=== PATIENT | female | born 1985 | race Caucasian/White ===

== ENCOUNTER → 2017-02-15 | Outpatient (CLI) | payer OTHER ==
[2017-02-15 19:19] LABS: THYROID STIMULATING HORMONE 1.43 uIU/mL (0.47-4.68)
== END ==
LOC: OD 17:01
PROVIDERS: ATTEND Student in an Organized Health Care Education/Training Program
DX: Z13.21 Encounter for screening for nutritional disorder (principal); Z13.29 Encounter for screening for other suspected endocrine disorder
CPT/HCPCS: 36415; 82306; 84439; 84443; 84480

== ENCOUNTER 2017-04-10 09:53 | Outpatient (CLI) | payer OTHER | END 2017-04-10 11:04 | disposition home or self-care (01) | LOC: LC 09:53 | PROVIDERS: ATTEND Student in an Organized Health Care Education/Training Program | PROC: 4A1HXCZ Monitoring of Products of Conception, Cardiac Rate, External Approach (ICD-10-PCS; principal; 2017-04-10) | DX: O48.0 Post-term pregnancy (principal); Z3A.40 40 weeks gestation of pregnancy | CPT/HCPCS: 59025 ==

== ENCOUNTER 2017-04-13 11:36 | Outpatient (CLI) | payer OTHER ==
--- NOTE | 2017-04-13 12:16 | Non Stress Test Report ---
Non Stress Test Datetime Report Generated by CPN: 04/13/2017 12:16 DEMOGRAPHIC EGA NST: 40.3 EGA NST: 40.0 INDICATION Indication for Study: Other Indication for Study: Ordered by Provider Indication for Study (NST) Other: Non-reactive NST in office Indication for Study (NST) Other: POST DATES MONITORING Monitor Explained: Monitor Explained; Test Explained; Patient Verbalized Understanding Monitor Explained: Monitor Explained; Test Explained; Patient Verbalized Understanding Time on Monitor: 04/13/2017 11:56 Time on Monitor: 04/10/2017 10:21 Time off Monitor: 04/13/2017 12:16 Time off Monitor: 04/10/2017 10:56 NST Duration: 20 NST Duration: 35 NST INTERVENTIONS NST Interventions: PO Hydration; Reposition Patient NST Interventions: PO Hydration; Reposition Patient Physician Notified NST: Dr. Baez Physician Notified NST: DR BAEZ REVIEWED STRIP BABY A: [id number] BABY A Movement : Present Movement : Present (Annotations: Data stored by CPN on behalf of user) Contraction Frequency : Irr Contraction Frequency : OCC FHR Baseline : 135 FHR Baseline : 135 Accelerations : 15X15 Accelerations : 15X15 Decelerations : None Decelerations : None Variability : Moderate 6-25bpm Variability : Moderate 6-25bpm NST Review: Meets Criteria for Reactive NST NST Review: Meets Criteria for Reactive NST NST Review and Verified By : Javon Velasco [facility] NST Review and Verified By : Hilda Canales NST Results: Reactive NST Results: Reactive NST REPORT Report Trigger: Send Report
== END 2017-04-13 12:23 | disposition home or self-care (01) ==
LOC: LC 11:36
PROVIDERS: ATTEND Student in an Organized Health Care Education/Training Program
PROC: 4A1HXCZ Monitoring of Products of Conception, Cardiac Rate, External Approach (ICD-10-PCS; principal; 2017-04-13)
DX: O48.0 Post-term pregnancy (principal); Z3A.40 40 weeks gestation of pregnancy
CPT/HCPCS: 59025

== ENCOUNTER 2017-04-16 19:05 | Inpatient (IN) | payer OTHER ==
[2017-04-16 20:56] LABS: ABSOLUTE LYMPHOCYTES (AUTO) 2.4 10^3/uL (0.5-4.7); ABSOLUTE NEUT (AUTO) 12.5 10^3/uL (1.7-8.2); BASOPHILS % (AUTO) 0.1 % (0-2); EOSINOPHILS % (AUTO) 0.3 % (0-6); HEMATOCRIT 39.1 % (36.0-47.0); HEMOGLOBIN 12.9 g/dL (12.0-15.5); HGB HCT DIFFERENCE -0.4; LYMPHOCYTES % (AUTO) 15.1 % (13-45); MEAN CORPUSCULAR HEMOGLOBIN 30.6 pg (27.0-33.4); MEAN CORPUSCULAR VOLUME 93 fl (80-97); MONOCYTES % (AUTO) 6.5 % (3-13); RED BLOOD COUNT 4.21 10^6/uL (3.72-5.28); RED CELL DISTRIBUTION WIDTH 13.2 % (11.5-14.0)
[2017-04-16 21:10] LABS: APPEARANCE,URINE CLOUDY; BILIRUBIN,URINE NEGATIVE (NEGATIVE); GLUCOSE, URINE NEGATIVE (NEGATIVE); KETONES,URINE NEGATIVE (NEGATIVE); LEUKOCYTE ESTERASE,URINE LARGE (NEGATIVE); NITRITE,URINE NEGATIVE (NEGATIVE); PROTEIN,URINE NEGATIVE (NEGATIVE); URINE SPECIFIC GRAVITY 1.008; UROBILINOGEN,URINE NEGATIVE mg/dL (<2.0)
[2017-04-16] MEDS ORDERED: RINGERS SOLUTION,LACTATED 300 ML IV ONE (21:16)
[2017-04-16] MEDS ORDERED: DINOPROSTONE 10 MG VAGINAL INSERT.SR PV PRN (21:16)
[2017-04-16] MEDS ORDERED: RINGERS SOLUTION,LACTATED 1,000 ML IV PRN (21:16)
[2017-04-16] MEDS ORDERED: OXYTOCIN/NORMAL SALINE 1,000 ML IV PRN (21:16)
[2017-04-16 21:25] LABS: URINE BARBITURATES SCREEN NEGATIVE; URINE METHADONE SCREEN NEGATIVE; URINE OPIATES LOW NEGATIVE; URINE PHENCYCLIDINE SCREEN NEGATIVE
[2017-04-16] MEDS ORDERED: DINOPROSTONE 10 MG VAGINAL INSERT.SR ONE (21:34)
[2017-04-16] MEDS ORDERED: ZOLPIDEM TARTRATE 5 MG TABLET ONE (23:12)
[2017-04-16] MEDS ORDERED: ZOLPIDEM TARTRATE 5 MG TABLET PO ONE (23:12)
[2017-04-17] MEDS ORDERED: PENICILLIN G-K 5 MILLION UNIT VIAL IV ONE (07:30)
[2017-04-17] MEDS ORDERED: PENICILLIN G POTASSIUM 5,000,000 UNIT in DEXTROSE 5%-WATER 100 ML IV ONE (08:00)
[2017-04-17] MEDS ORDERED: OXYTOCIN/NORMAL SALINE 0 UNIT/0 ML RTUINJ ONE ×2 (10:34→19:20)
[2017-04-17] MEDS ORDERED: PENICILLIN G POTASSIUM 2,500,000 UNIT in DEXTROSE 5%-WATER 50 ML IV SCH (12:00)
--- NOTE | 2017-04-17 13:04 | L&D Progress Notes ---
PROGRESS NOTES Datetime Report Generated by CPN: 04/17/2017 13:03 PROGRESS NOTE Procedures: Artificial ROM; Scalp Electrode Plan: Continue Present Management; Induction Informed Consent Obtained: Section Delivery; Induction of Labor; Risks, Benefits and Alternatives Discussed Vital Signs : Reviewed Comment: s/p cervidil removal pt sitting up noted intermittent late and variable decelerations relieved with position change cervix 3/70/-2 warm to touch temp 98.3 AROM heavy meconium EFW 8 lbs GBS positive- prophylaxis initiated pitocin 4 milliunits/ min contractions 3-4 min FSE placed poc reviewed with pt and spouse VAGINAL EXAM Dilatation: 3 Dilatation: 1 Effacement: 70 Effacement: 50 Station: -2 Station: -2 MEMBRANES Membranes: Ruptured Amniotic Fluid Color: Meconium, Heavy FETUS A FHR - Baseline: 140 Monitoring: External US Variability: Moderate 6-25bpm Decelerations: Late; Variable FHR Category: Category I : 41.0 SIGNATURE SIGNATURE: [id number] SIGNATURE: [id number] Assignment: Flavio Peterson MD Signature: with User ID: [email or web address] : with User ID: [email or web address]
[2017-04-17] MEDS ORDERED: PENICILLIN G-K 5 MILLION UNIT VIAL ONE ×3 (13:05→21:09)
[2017-04-17] MEDS ORDERED: EPHEDRINE SULFATE INJ 50 MG/1 ML AMPULE ONE (13:54)
[2017-04-17] MEDS ORDERED: BUPIVACAINE HCL 0.25 % INJ/PF (2.5 MG/1 ML) 30 ML VIAL ONE (13:55)
[2017-04-17] MEDS ORDERED: FENTANYL/BUPIVACAINE/NS/PF 200 MCG/100 ML RTUINJ EPI ONE (13:55)
[2017-04-17] MEDS ORDERED: LIDOCAINE 2%/EPINEPHRINE INJ 20 ML VIAL ONE (14:20)
[2017-04-17] MEDS ORDERED: SODIUM BICARBONATE 8.4% INJ 50 MEQ/50 ML DISP.SYRIN ONE (14:20)
[2017-04-17] MEDS ORDERED: PHENYLEPHRINE HCL INJ/PF 10 MG/1 ML SDV ONE (14:21)
[2017-04-17] MEDS ORDERED: FENTANYL CITRATE INJ/PF 100 MCG/2 ML AMPUL ONE (14:21)
[2017-04-17] MEDS: PENICILLIN G-K 5 MILLION UNIT VIAL IV SCH ×2 (19:10→21:14)
[2017-04-17] MEDS ORDERED: LIDOCAINE 1% INJ-PF (10 MG/ML) 30 ML SDV ONE (19:20)
[2017-04-17] MEDS ORDERED: MISOPROSTOL 0.2 MG TABLET ONE (19:20)
[2017-04-17] MEDS ORDERED: PROMETHAZINE HCL 25 MG TABLET PO PRN (22:10)
[2017-04-17] MEDS ORDERED: PROMETHAZINE HCL 25 MG SUPP.RECT PR PRN (22:10)
[2017-04-17] MEDS ORDERED: DIBUCAINE 1% OINTMENT 28 GM TP PRN (22:10)
[2017-04-17] MEDS ORDERED: DIPHENHYDRAMINE HCL 25 MG CAPSULE PO PRN (22:10)
[2017-04-17] MEDS ORDERED: NA PHOS,M-B/NA PHOS,DI-BA (ADULT) 133 ML ENEMA PR PRN (22:10)
[2017-04-17] MEDS ORDERED: OXYTOCIN/NORMAL SALINE 1,000 ML IV PRN (22:10)
[2017-04-17] MEDS ORDERED: BENZOCAINE/MENTHOL AEROSOL SPRAY 56 ML TOP PRN (22:10)
[2017-04-17] MEDS ORDERED: GLYCERIN/WITCH HAZEL LEAF 1 EACH MED..PAD TP PRN (22:10)
[2017-04-17] MEDS ORDERED: DIPH/PERTUSS(ACELL)/TETANUS VAC/PF 0.5 ML SYR (>=10YO) IM PRN (22:10)
[2017-04-17] MEDS ORDERED: ACETAMINOPHEN 650 MG SUPP.RECT PR PRN (22:10)
[2017-04-17] MEDS ORDERED: MEASLES,MUMPS&RUBELLA VACC/PF 0.5 ML VIAL SUBCUT PRN (22:10)
[2017-04-17] MEDS ORDERED: PSEUDOEPHEDRINE HCL 30 MG TABLET PO PRN (22:10)
[2017-04-17] MEDS ORDERED: MAGNESIUM HYDROXIDE SUSP 30 ML UDCUP PO PRN (22:10)
[2017-04-17] MEDS ORDERED: ACETAMINOPHEN WITH CODEINE #3 TABLET PO PRN ×2 (22:10)
[2017-04-17] MEDS ORDERED: ZOLPIDEM TARTRATE 5 MG TABLET PO PRN (22:10)
[2017-04-17] MEDS ORDERED: PROMETHAZINE HCL INJ 25 MG/1 ML VIAL IV PRN (22:10)
--- NOTE | 2017-04-18 00:29 | Admission Physical ---
Datetime Report Generated by CPN: 04/18/2017 00:28 CURRENT ADMISSION Hx Assessment: The History has been Reviewed and is Current Chief Complaint: Scheduled Induction of Labor Indication for Induction: Postterm Admit Plan: Initiate Labor Protocol ALLERGIES Medication Allergies: No Medication Allergies: No Known Allergies (04/16/2017) Medication Allergies: No Known Allergies (04/13/2017) Medication Allergies: No Known Allergies (04/10/2017) Latex: No Latex Allergies OBSTETRICAL HISTORY EDC: 04/10/2017 00:00 : 1 Para: 0 Term: 0 : 0 SAB: 0 IAB: 0 Ectopic: 0 Livin Cesareans: 0 VBACs: 0 Multiple Births: 0 Gestational Diabetes: No Rh Sensitization: No Incompetent Cervix: No BURT: No Infertility: No ART Treatment: No Uterine Anomaly: No IUGR: No Hx Previous C/S: No Macrosomia: No Hx Loss/Stillborn: No PIH: No Hx : No Placenta Previa/Abruption: No Depression/PP Depression: No PTL/PROM: No Post Hemorrhage: No Current Procedures: Ultrasound; NST Obstetrical History Comments: G1- Current SEE RECORDS Alcohol: No Marijuana : No Cocaine: No Other Illicit Drugs: No Cigarettes: Never Smoker. 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 Heart Disease: No Hosp/Surgery: Yes Autoimmune Disorder: No Anesthetic Complications: No Kidney Disease: No Abnormal Pap Smear: No Neuro/Epilepsy: No Psychiatric Disorders: No Other Medical Diseases: No Hepatitis/Liver Disease: No Significant Family History: No Varicosities/Phlebitis: No Trauma/Violence : No Thyroid Dysfunction: No Medical History Comments: Breast Augmentation 2012 ACL Repair 2005 INFECTIOUS HISTORY Gonorrhea: No Genital Herpes: No Chlamydia: No Tuberculosis: No Syphilis: No Hepatitis: No HIV/AIDS Exposure: No Rash or Viral Illness: No HPV: No PHYSICAL EXAM General: Normal HEENT: Normal Neurologic: Normal Thyroid: Normal Heart: Normal Lungs: Normal Breast: Normal Back: Normal Abdomen: Normal Genitourinary Exam: Normal Extremities: Normal DTRs: Normal Pelvic Type: Adequate Physical Exam Comments: efw 9 1/2 pounds VAGINAL EXAM Dilatation: 3 Dilatation: 1 Effacement: 70 Effacement: 50 Station: -2 Station: -2 MEMBRANES Membranes: Ruptured Amniotic Fluid Color: Meconium, Heavy FETUS A EGA: 40.6 Monitoring: External US Admit Comment: plan cervidil cervical ripening and induction PLANS FOR LABOR AND DELIVERY Labor and Delivery: None Pain Management: Epidural Feeding Preference: Formula Benefit of Breast Feed Discussed: Yes Circumcision: Yes INFORMED CONSENT Informed Consent Obtained: Section Delivery; Induction of Labor; Risks, Benefits and Alternatives Discussed Signature: with User ID: [email or web address]
[2017-04-18] MEDS: IBUPROFEN 800 MG TABLET PO SCH ×3 (07:01→22:53)
[2017-04-18 07:55] LABS: HEMATOCRIT 30.5 % (36.0-47.0); HGB HCT DIFFERENCE -0.2; MEAN CORPUSCULAR HEMOGLOBIN 30.8 pg (27.0-33.4); MEAN CORPUSCULAR HGB CONC 33.3 g/dL (32.0-36.0); MEAN CORPUSCULAR VOLUME 93 fl (80-97); RED BLOOD COUNT 3.29 10^6/uL (3.72-5.28); RED CELL DISTRIBUTION WIDTH 13.4 % (11.5-14.0); WHITE BLOOD COUNT 24.3 10^3/uL (4.0-10.5)
[2017-04-18 08:21] LABS: HEMOGLOBIN 10.1 g/dL (12.0-15.5)
[2017-04-18] MEDS: PRENATAL VITAMIN W-O CA NO5/FE FUMARATE/FA CAPSULE PO SCH (09:57)
[2017-04-18] MEDS: FERROUS SULFATE 325 MG TABLET PO SCH ×2 (09:58→18:03)
[2017-04-18] MEDS: SENNOSIDES/DOCUSATE 8.6-50 MG 1 EACH TABLET PO SCH (09:58)
[2017-04-18] MEDS: DOCUSATE SODIUM 100 MG CAPSULE PO SCH ×2 (09:58→18:03)
[2017-04-18] MEDS: FAMOTIDINE 20 MG TABLET PO SCH ×2 (09:59→22:53)
--- NOTE | 2017-04-18 10:01 | PDOC PROGRESS REPORT ---
Subjective-OB Subjective: Post Delivery Day: 1 32 year old. Denies any needs at this time, voiding without difficulty, lochia is stable, pain well controlled. Physical Exam (OB) Vital Signs: Temp Pulse Resp BP Pulse Ox 97.9 F 78 16 117/60 98 04/18/17 07:40 04/18/17 07:40 04/18/17 07:40 04/18/17 07:40 04/18/17 07:40 Intake & Output 04/17/17 04/18/17 04/19/17 06:59 06:59 06:59 Weight 94.85 kg - Lochia Lochia Amount: Small 10-25 ml Lochia Color: Rubra/Red - Abdomen Description: Tender, Soft Hernia Present: No Fundal Description: Firm, Midline Fundal Height: u/u - u/2 Objective-Diagnostic Laboratory: 04/18/17 07:28 04/18/17 07:28 WBC 24.3 H RBC 3.29 L Hgb 10.1 L D Hct 30.5 L MCV 93 MCH 30.8 MCHC 33.3 RDW 13.4 Plt Count 239 Assessment and Plan(PN) - Assessment and Plan (1) Vaginal delivery Is this a current diagnosis for this admission?: YesPlan: routine pp care anticipate d/c home tomorrow (2) Acute blood loss anemia Is this a current diagnosis for this admission?: YesPlan: ferrous sulfate increase dietary iron - Time Spent with Patient Time with patient: Less than 15 minutes Critical Time spent with patient: Less than 15 minutes Smoking Education Provided: Over 3 minutes Medications reviewed and adjusted accordingly: Yes - Disposition Anticipated Discharge: Home Within: within 24 hours
[2017-04-19] MEDS: IBUPROFEN 800 MG TABLET PO SCH ×2 (05:03→14:16)
[2017-04-19 07:52] LABS: ABSOLUTE BASOPHILS # (AUTO) 0.1 10^3/uL (0.0-0.2); ABSOLUTE EOSINOPHILS # (AUTO) 0.1 10^3/uL (0.0-0.6); ABSOLUTE LYMPHOCYTES (AUTO) 2.2 10^3/uL (0.5-4.7); ABSOLUTE MONOCYTES (AUTO) 1.2 10^3/uL (0.1-1.4); ABSOLUTE NEUT (AUTO) 11.5 10^3/uL (1.7-8.2); BASOPHILS % (AUTO) 0.4 % (0-2); EOSINOPHILS % (AUTO) 0.6 % (0-6); HEMATOCRIT 27.6 % (36.0-47.0); HEMOGLOBIN 9.2 g/dL (12.0-15.5); LYMPHOCYTES % (AUTO) 14.6 % (13-45); MEAN CORPUSCULAR HEMOGLOBIN 30.7 pg (27.0-33.4); MEAN CORPUSCULAR HGB CONC 33.3 g/dL (32.0-36.0); MEAN CORPUSCULAR VOLUME 92 fl (80-97); MONOCYTES % (AUTO) 7.9 % (3-13); RED CELL DISTRIBUTION WIDTH 13.5 % (11.5-14.0); SEGMENTED NEUTROPHILS % (AUTO) 76.5 % (42-78)
[2017-04-19 09:09] VITALS: BP 116/69
[2017-04-19] MEDS: FERROUS SULFATE 325 MG TABLET PO SCH (09:24)
[2017-04-19] MEDS: SENNOSIDES/DOCUSATE 8.6-50 MG 1 EACH TABLET PO SCH (09:24)
[2017-04-19] MEDS: DOCUSATE SODIUM 100 MG CAPSULE PO SCH (09:24)
[2017-04-19] MEDS: FAMOTIDINE 20 MG TABLET PO SCH (09:24)
[2017-04-19] MEDS: PRENATAL VITAMIN W-O CA NO5/FE FUMARATE/FA CAPSULE PO SCH (09:25)
--- NOTE | 2017-04-19 12:27 | PDOC DISCHARGE SUMMARY ---
Final Diagnosis Discharge Date: 04/19/17 - Final Diagnosis (1) Vaginal delivery Is this a current diagnosis for this admission?: Yes (2) Acute blood loss anemia Is this a current diagnosis for this admission?: Yes Discharge Data - Discharge Medication Home Medications: Vit/Iron Fumarate/FA [ Tablet] 1 tab PO DAILY 04/10/17 Docusate Sodium [Colace 100 mg Capsule] 100 mg PO BID #60 capsule 04/19/17 Ferrous Sulfate [Feosol 325 mg Tablet] 325 mg PO BID #60 tablet 04/19/17 Ibuprofen [Motrin 800 mg Tablet] 800 mg PO Q8HP PRN #90 tablet 04/19/17 Reason(s) for Admission: Induction of Labor - post term Procedures: Ultrasound Intrapartum Procedure(s): Spontaneous Vaginal Delivery Complication(s): Laceration-Perineal, Laceration-Labial Laceration-Degree: 2nd - Diagnosis Test Laboratory: Temp Pulse Resp BP Pulse Ox 98.0 F 79 16 116/69 100 04/19/17 07:41 04/19/17 07:41 04/19/17 07:41 04/19/17 07:41 04/19/17 07:41 04/16/17 04/16/17 04/18/17 19:26 19:40 07:28 RBC 4.21 3.29 L Hgb 12.9 10.1 L D Hct 39.1 30.5 L Urine Opiates Screen NEGATIVE 04/19/17 07:23 RBC 3.00 L Hgb 9.2 L Hct 27.6 L Urine Opiates Screen - Discharge information/Instructions Discharge Activity: Activity As Tolerated, Balance Activity w/Rest, No Lifting Over 10 Pounds, No Lifting/Push/Pulling, Pelvic Rest, Slowly Increase Activity, No tub bath Discharge Diet: Regular Disposition: HOME, SELF-CARE Follow up with: [facility] in: 4, Weeks - pp visit
--- NOTE | 2017-04-19 13:55 | Delivery Summary ---
Del Sum A-C Datetime Report Generated by CPN: 04/19/2017 13:55 DELIVERY PERSONNEL DELIVERY PERSONNEL: [id number] DELIVERY PERSONNEL: [id number] DELIVERY PERSONNEL: [phone] Delivery Doctor:: Flavio Peterson MD Labor and Delivery Nurse:: Calli Gutierrez RN Nursery Nurse:: Jessie Arteaga RN Nutrition Technician/CAFE ATTENDANT: Jai Sarmiento CNA MATERNAL INFORMATION Delivery Anesthesia: Local; Epidural Medications After Delivery: Pitocin Drip 20 Units/1000ml NSS Estimated Blood Loss (ml): 250 Maternal Complications: None LABOR SUMMARY EDC: 04/10/2017 00:00 No. Babies in Womb: 1 Labor Anesthesia: Epidural LABOR INFORMATION Reason for Induction: Post Dates Onset of Labor: 04/17/2017 17:23 Complete Dilatation: 04/17/2017 21:53 Cervical Ripening Agents: Cervidil Oxytocin: Induction Group B Beta Strep: Positive Antibiotics # of Doses: 3 Antibiotics Time of Last Dose: 2113 Name of Antibiotic Given: Penicillin Steroids Given: None Reason Steroids Not Administered: Not Applicable MEMBRANES Membranes Rupture Method: Artificial Rupture of Membranes: 04/17/2017 12:55 Length of Rupture (hr): 8.90 Amniotic Fluid Color: Moderate Meconium Amniotic Fluid Amount: Scant Amniotic Fluid Odor: None STAGES OF LABOR Stage 1 hr: 4 Stage 1 min: 30 Stage 2 hr: 0 Stage 2 min: -4 Stage 3 hr: 0 Stage 3 min: 16 Total Time in Labor hr: 4 Total Time in Labor min: 42 VAGINAL DELIVERY Episiotomy: None Laceration Extension: Second Degree Laceration Type: Perineal Other Laceration: 1st degree labial Laceration Repair: Yes Laceration Repair Note: repair in usual fashion with 3-0 chromic suture Sponge Count Correct: Yes; Vaginal Sweep Performed Sharps Count Correct: Yes BABY A INFORMATION Delivery Date/Time: 04/17/2017 21:49 Method of Delivery: Vaginal Born in Route : No : N/A Forceps: N/A Vacuum Extraction: N/A Shoulder Dystocia : No PRESENTATION/POSITION BABY A Presentation: Cephalic Presentation: Cephalic Cephalic Presentation: Vertex Vertex Position: Right Occipital Anterior Breech Presentation: N/A PLACENTA INFORMATION BABY A Placenta Delivery Time : 04/17/2017 22:05 Placenta Method of Delivery: Spontaneous Placenta Status: Delivered SCORES BABY A Heart Rate 1 min: >100 bpm Resp Effort 1 min: Good Cry Reflex Irritability 1 min: Cough or Sneeze or Pulls Away Muscle Tone 1 min: Active Motion Color 1 min: Body Kuna, Extremities Blue Resuscitation Effort 1 min: N/A SCORE 1 MIN: 9 Heart Rate 5 min: >100 bpm Resp Effort 5 min: Good Cry Reflex Irritability 5 min: Cough or Sneeze or Pulls Away Muscle Tone 5 min: Active Motion Color 5 min: Body Kuna, Extremities Blue Resuscitation Effort 5 min: N/A SCORE 5 MIN: 9 INFANT INFORMATION BABY A Gestational Age at Delivery: 41.0 Gestational Status: Late Term- 41- 41.6 Weeks Infant Outcome : Liveborn Infant Condition : Stable Infant Sex: Male IDENTIFICATION BABY A Verification Date/Time: 04/17/2017 21:56 ID Band Number: [id number] Mother's Name Verified: Yes Infant RN Verifying : Nitish Medley RNC Additional Verifying Personnel: D Ronny, US WEIGHT/LENGTH BABY A Birthweight (gm): 3830 Weight (lb): 8 Weight (oz): 7 Infant Length (in): 21.50 Length (cm): 54.61 CORD INFORMATION BABY A No. Cord Vessels: 3 Nuchal Cord : Around Neck x1, Loose Cord Blood Taken: Yes-For Eval (Mom's Blood Type - or O+) Infant Suction: Mouth; Nose ASSESSMENT BABY A Infant Complications: None Physical Findings at Delivery: Molding of the Head; Puncture Wound from Scalp Electrode Respirations: Appears Normal Skin to Skin: Yes Skin to Skin: Yes Skin to Skin: Yes Skin to Skin: Yes Skin to Skin Time (min): 60 Histology Manager/ALS Called : No Infant Care By: Esmer coley RN Transferred To: Remains with Mother SIGNATURES Signature: with User ID: [email or web address]
== END 2017-04-19 16:25 | disposition home or self-care (01) | DRG 775 ==
LOC: LC 19:05 → LR 19:08 → 2S 04-18 00:27
PROVIDERS: ADMIT Specialist; ATTEND Specialist
PROC: 4A1H7CZ Monitoring of Products of Conception, Cardiac Rate, Via Natural or Artificial Opening (ICD-10-PCS; 2017-04-16)
PROC: 10H073Z Insertion of Monitoring Electrode into Products of Conception, Via Natural or Artificial Opening (ICD-10-PCS; 2017-04-16)
PROC: 10E0XZZ Delivery of Products of Conception, External Approach (ICD-10-PCS; principal; 2017-04-17)
PROC: 0KQM0ZZ Repair Perineum Muscle, Open Approach (ICD-10-PCS; 2017-04-17)
PROC: 0UQMXZZ Repair Vulva, External Approach (ICD-10-PCS; 2017-04-17)
PROC: 3E033VJ Introduction of Other Hormone into Peripheral Vein, Percutaneous Approach (ICD-10-PCS; 2017-04-17)
PROC: 10907ZC Drainage of Amniotic Fluid, Therapeutic from Products of Conception, Via Natural or Artificial Opening (ICD-10-PCS; 2017-04-17)
DX: O48.0 Post-term pregnancy (principal); D62 Acute posthemorrhagic anemia; O99.02 Anemia complicating childbirth; O70.1 Second degree perineal laceration during delivery; O77.0 Labor and delivery complicated by meconium in amniotic fluid; O99.824 Streptococcus B carrier state complicating childbirth; O69.81X0 Labor and delivery complicated by cord around neck, without compression, not applicable or unspecified; Z3A.41 41 weeks gestation of pregnancy; Z37.0 Single live birth
CPT/HCPCS: 36415; 80307; 81005; 85025; 85027; 86592; 86850; 86900; 86901; 90715; J2370; J2540; J2590; J3010; J3490